=== PATIENT | female | born 1940 | race Two or more races ===

== ENCOUNTER 2019-12-21 11:54 | Emergency (ER) | payer OTHER ==
[~2019-12-21] VITALS: Ht 152.4 cm; Wt 78.0 kg
[2019-12-21] MEDS ORDERED: SYNTHROID150 MCG PO (12:07)
[2019-12-21] MEDS ORDERED: MONTELUKAST SODI4 M1 PO (12:08)
[2019-12-21] MEDS ORDERED: SIMVASTATIN5 MG PO (12:08)
[2019-12-21] MEDS ORDERED: AMLODIPINE-OLM1 EACH PO (12:08)
[2019-12-21] MEDS ORDERED: RAZADYNE ER16 MG PO (12:08)
[2019-12-21] MEDS ORDERED: COZAAR25 MG PO (12:08)
[2019-12-21] MEDS ORDERED: NORVASC5 MG PO (12:09)
== END 2019-12-21 16:17 | disposition home or self-care (01) ==
LOC: ER 11:54
DX: G45.3 Amaurosis fugax (principal); M54.12 Radiculopathy, cervical region; M79.602 Pain in left arm

== ENCOUNTER 2021-11-05 10:29 | Outpatient (CLI) | payer OTHER ==
[~2021-11-05 10:29] MED LIST: AMLODIPINE-OLM1 EACH PO; COZAAR25 MG PO; MONTELUKAST SODI4 M1 PO; NORVASC5 MG PO; RAZADYNE ER16 MG PO; SIMVASTATIN5 MG PO; SYNTHROID150 MCG PO
== END 2021-11-05 10:55 | disposition home or self-care (01) ==
LOC: SONOGRAMA 10:29
PROVIDERS: ATTEND Family Medicine Geriatric Medicine
DX: R63.4 Abnormal weight loss (principal)

== ENCOUNTER 2022-12-18 16:19 | Emergency (ER) | payer OTHER ==
[~2022-12-18] VITALS: Ht 162.6 cm; Wt 49.9 kg
== END 2022-12-18 19:02 | disposition home or self-care (01) ==
LOC: ER 16:19
PROVIDERS: General Practice
DX: R55 Syncope and collapse (principal)

== ENCOUNTER 2023-07-21 12:02 | Emergency (ER) | payer OTHER ==
[~2023-07-21] VITALS: Ht 165.1 cm; Wt 61.2 kg
[2023-07-21] MEDS ORDERED: CEFTRIAXONE SODIUM 2,000 MG VIAL IV ONE (12:45)
[2023-07-21 13:51] LABS: HEMOGLOBIN 12.9 g/dL (12.0-15.00); MEAN CELL VOLUME 85.4 fL (80.00-100.00); MEAN CORPUSCULAR HEMOGLOBIN 28.9 pg (27.00-32.0); MEAN CORPUSCULAR HGB CONC 33.9 g/dl (32.0-36.0); PLATELET COUNT 263 K/uL (150-450); RED BLOOD COUNT 4.45 M/uL (4.00-6.00); RED CELL DISTRIBUTION WIDTH 14.7 % (11.5-14.5)
[2023-07-21 14:06] LABS: CALCIUM 8.7 mg/dL (8.5-10.1); CREATININE SERUM 0.87 mg/dL (0.55-1.02); GFR 62.18; POTASSIUM 4.43 mEq/L (3.5-5.1)
== END 2023-07-21 14:50 | disposition home or self-care (01) ==
LOC: ER 12:02
PROVIDERS: General Practice
DX: L03.032 Cellulitis of left toe (principal); G30.8 Other Alzheimer's disease; F02.80 Dementia in other diseases classified elsewhere, unspecified severity, without behavioral disturbance, psychotic disturbance, mood disturbance, and anxiety; F32.89 Other specified depressive episodes; Z90.5 Acquired absence of kidney
CPT/HCPCS: 36415; 96365; 99282; J0696